=== PATIENT | female | born 1960 | race Caucasian/White ===

== ENCOUNTER → 2017-07-18 16:39 | Outpatient (CLI) | payer OTHER | END | disposition home or self-care (01) | LOC: D.MAMMO 15:30 | DX: Z12.31 Encounter for screening mammogram for malignant neoplasm of breast (principal) ==

== ENCOUNTER → 2018-07-31 16:56 | Outpatient (CLI) | payer OTHER | END | disposition home or self-care (01) | LOC: D.MAMMO 06-12 13:15 | DX: Z12.31 Encounter for screening mammogram for malignant neoplasm of breast (principal) ==

== ENCOUNTER → 2019-08-27 11:00 | Outpatient (CLI) | payer OTHER | END | disposition home or self-care (01) | LOC: D.MAMMO 11:00 | PROVIDERS: ATTEND Family Medicine | DX: Z12.31 Encounter for screening mammogram for malignant neoplasm of breast (principal) ==

== ENCOUNTER → 2019-09-23 21:15 | Outpatient (CLI) | payer OTHER | END | disposition home or self-care (01) | LOC: D.MAMMO 10:30 | PROVIDERS: ATTEND Family Medicine | DX: R92.8 Other abnormal and inconclusive findings on diagnostic imaging of breast (principal) ==

== ENCOUNTER → 2020-01-01 09:02 | Outpatient (CLI) | payer OTHER | END | disposition home or self-care (01) | LOC: D.US 09:02 | PROVIDERS: ATTEND Family Medicine | DX: R10.10 Upper abdominal pain, unspecified (principal) ==

== ENCOUNTER → 2020-01-08 12:34 | Outpatient (CLI) | payer OTHER | END | disposition home or self-care (01) | LOC: D.NM 12:34 | PROVIDERS: ATTEND Family Medicine | DX: R10.10 Upper abdominal pain, unspecified (principal) ==

== ENCOUNTER 2020-01-21 05:45 | Day surgery (SDC) | payer OTHER ==
[~2020-01-21] VITALS: Ht 152.4 cm; Wt 64.4 kg
[~2020-01-21 05:45] MED LIST: TRAZODONE HCL150 MG PO; ULTRAM50 MG PO
[2020-01-21 06:16] LABS: BASOPHILS 0.1 % (0-2); EOSINOPHILS 0.9 % (0-7); HEMATOCRIT 41.1 % (36.0-48.0); HEMOGLOBIN 13.6 g/dL (12-16); IMMATURE GRANULOCYTES 0.1 % (0-5); MCH 28.3 pg (26.0-34.0); MCHC 33.1 g/dL (31.0-37.0); MCV 85.4 fL (80.0-100.0); MEAN PLATELET VOLUME 10.9 fL (7.4-10.4); MONOCYTES 7.6 % (2-11); NEUTROPHILS 71.3 % (40-80); PLATELET COUNT 187 10x3/uL (130-400); RBC 4.81 10x6/uL (4.00-5.40); RDW 12.7 % (11.5-14.5); WBC 7.4 10x3/uL (4.8-10.8)
[2020-01-21 06:26] LABS: CALC OSMOLALITY 274 mosm/kg (275-300); CARBON DIOXIDE 27.4 mmol/L (21.0-32.0); CHLORIDE - SERUM 104 mmol/L (98-107); CREATININE - SERUM 0.7 mg/dL (0.6-1.3); GLUCOSE 112 mg/dL (74-106); POTASSIUM - SERUM 3.3 mmol/L (3.5-5.1); SODIUM 138 mmol/L (136-145); UREA NITROGEN 7 mg/dL (7-18); eGFR NON AFRICAN AMERICAN > 90 mL/min (90-120)
[2020-01-21 07:00] VITALS: BP 111/46; Ht 152.4 cm; Wt 64.4 kg
[2020-01-21] MEDS ORDERED: HYDROCODON-ACE1 EA10 PO (09:49)
--- NOTE | 2020-01-21 12:45 | NUR ---
1100-CONTINUE TO BE DROWSY,AROUSABLE WITH VERBAL STIMULI. VSS.DRESSINGS TO ABD CDI. TOLERATATED MARILYN LEMON LINE DRINK.
--- NOTE | 2020-01-21 12:47 | NUR ---
1200-CONTINUE TO BE SLEEPY. ENCOURAGED TO MOVE AROUND FOR DISCHARGE HOME.VSS. AT BEDSIDE.DRESSINGS CDI. NO DISTRESS.NO N/V
--- NOTE | 2020-01-21 13:45 | NUR ---
1320-ASSISTED PT TO RESTROOM AND UNABLE TO VOID AT THIS TIME REPORTS DIZZINESS DURING AMBULATION.REQUIRED STANDBY ASSIST.VSS.NO DISTRESS.DRESSINGS CDI.IV PATENT. FLUIDS ENCOURAGED AND AT BEDSIDE. CL IN EASY REACH.SPOUSE AT BEDSIDE.
--- NOTE | 2020-01-21 13:58 | OP ---
PATIENT NAME: KAE HARDING MEDICAL RECORD: [id number] :62 LOCATION:D.OPS ADMISSION DATE: SURGEON: MIKO JEFFREY MD DATE OF OPERATION: 01/21/2020 PREOPERATIVE DIAGNOSIS: Biliary dyskinesia. POSTOPERATIVE DIAGNOSIS: Biliary dyskinesia. PROCEDURE: Laparoscopic cholecystectomy. SURGEON: Miko Jeffrey MD REPORT OF PROCEDURE: The patient's abdomen was prepped and draped in sterile fashion. A cutdown was made on the superior aspect of the umbilicus, 0 Vicryls were placed on the fascia bilaterally and the fascia was incised with 15-blade. I then bluntly entered the peritoneal cavity and placed a 12-mm Nicholas port. Under direct visualization, a 5-mm trocar was placed in the epigastrium and then two more 5-mm trocars were placed in the right subcostal region. The gallbladder was grasped and elevated. The cystic artery and cystic duct were dissected free and these were clipped proximally and distally and ligated in standard fashion. The gallbladder was taken off the liver bed using electrocautery and placed into the right upper quadrant. Any bleeding from the liver bed was then treated with electrocautery. We irrigated out the right upper quadrant and assured there was no sign of any bleeding or bile leakage. At this point, the ports and insufflation were then removed and the gallbladder was taken out through the umbilicus. The umbilical fascia was closed with interrupted 0 Vicryls times 3. The wounds were then irrigated out with normal saline and infused with 10 mL of 0.25% Marcaine with epinephrine. Skin incisions were closed with subcutaneous 5-0 Monocryl and dressed appropriately. COMPLICATIONS: None. CONDITION: Stable. ANESTHESIA: General endotracheal and local. BLOOD LOSS: Minimal. TRANSINT:[id number] Voice Confirmation ID: [id number] DOCUMENT ID: [id number] MIKO JEFFREY MD at 1358 CC: SABI CAMPBELL [id number] DICTATION DATE: 01/21/20 1008 TRAINING SYSTEMS OFFICER: 01/21/20 1120 REG [facility] [address] [place] [id number]
--- NOTE | 2020-01-21 14:31 | NUR ---
1415-AMBULATED TO RESTROOM AND URINATED. CONTINUE TO REQUIRE STAND BY ASSIST FOR AMBULATION. DIZZINESS
--- NOTE | 2020-01-21 15:46 | NUR ---
1515-VSS.DENIES PAIN.DRESSINGS CDI. NO DISTRESS.NO N/V TOLERATED PUDDING. ABLE TO SIT AT BEDSIDE AND AMBULATE WITHOUT ASSISTANCE AT THIS TIME.VERY PLEASANT. REMOVED IV WITH CATH INTACT,DISPOSED INTO SHARPS,COVERED WITH GUAZE,SECURED WITH MEDIPORE TAPE
--- NOTE | 2020-01-21 15:50 | NUR ---
1545-REVIEWED POST OPERATIVE INSTRUCTIONS AND FOLLOW UP APPOINTMENT.VERBALIZED UNDERSTANDING.ESCORTED OUT VIA W/C WITH SPOUSE DRIVING HOME
== END 2020-01-21 15:45 | disposition home or self-care (01) ==
LOC: D.OPS 05:45
PROVIDERS: ATTEND Surgery
DX: K82.8 Other specified diseases of gallbladder (principal)